=== PATIENT | female | born 1975 | race Two or more races ===

== ENCOUNTER 2017-06-15 16:19 | Emergency (ER) | payer BC, OTHER ==
[~2017-06-15] VITALS: Ht 167.6 cm; Wt 113.4 kg
[~2017-06-15 16:19] MED LIST: PROZAC; [UNRECOGNIZED DRUG - CODE]
[2017-06-15 18:22] VITALS: BP 150/80
[2017-06-15] MEDS ORDERED: PROMETHAZINE HCL 25 MG/ML 1ML IM ONE (18:45)
[2017-06-15] MEDS ORDERED: diphenhdrAMINE HCL 25 MG CAP PO ONE (18:45)
== END 2017-06-15 19:36 | disposition home or self-care (01) ==
LOC: EDBD 16:19 → ER 16:26
DX: G43.909 Migraine, unspecified, not intractable, without status migrainosus (principal); M19.90 Unspecified osteoarthritis, unspecified site; M79.7 Fibromyalgia
CPT/HCPCS: 70450; 96372; 99284; J2550